=== PATIENT | male | born 1970 | race Caucasian/White ===

== ENCOUNTER 2019-01-10 16:19 | Emergency (ER) | payer OTHER ==
[~2019-01-10] VITALS: Ht 188 cm; Wt 118.2 kg
[2019-01-10] MEDS ORDERED: GLUC1CAP9 PO (16:24)
[2019-01-10] MEDS ORDERED: CYMB1CAP4 PO (16:24)
[2019-01-10] MEDS ORDERED: MORPHINE 10 MG/ML 1ML VIAL (J2270) IM ONE (16:45)
[2019-01-10] MEDS ORDERED: ONDANSETRON 4 MG ORAL DISINTEGRATING TAB (Q0162 PER 1MG) PO ONE (16:45)
--- NOTE | 2019-01-10 17:10 | REP ---
Clinical: Fall with pain . Technique: AP, lateral, bilateral oblique views of the left elbow. Findings: No acute fracture or dislocation is appreciated. Joint spaces and surrounding soft tissues appear normal. Lateral view demonstrates normal positioning to the anterior and posterior fat pads without evidence for effusion/hemarthrosis. No subcutaneous emphysema or foreign body identified. Impression: Normal left elbow radiographs. No acute fracture or dislocation appreciated. Electronically Signed by Danny Shannon MD 01/10/2019 05:02 P
[2019-01-10 17:43] VITALS: BP 128/76
== END 2019-01-10 17:45 | disposition home or self-care (01) ==
LOC: M ED 16:19
DX: S50.02XA Contusion of left elbow, initial encounter (principal); W19.XXXA Unspecified fall, initial encounter; Y92.098 Other place in other non-institutional residence as the place of occurrence of the external cause; Z79.899 Other long term (current) drug therapy
CPT/HCPCS: 73080; 96372; 99283; J2270; Q0162

== ENCOUNTER → 2025-06-25 | Outpatient (CLI) | payer OTHER ==
[~2025-06-25] MED LIST: CYMB1CAP4 PO; GLUC1CAP9 PO
== END ==
LOC: M PLARAD 10:59
PROVIDERS: ATTEND Family Medicine
DX: M54.2 Cervicalgia (principal); M47.812 Spondylosis without myelopathy or radiculopathy, cervical region

== ENCOUNTER → 2025-09-22 | Outpatient (CLI) | payer OTHER | LOC: M RAD 16:02 | PROVIDERS: ATTEND Nurse Practitioner Family | DX: M54.6 Pain in thoracic spine (principal) ==